=== PATIENT | male | born 1985 | race Caucasian/White ===

== ENCOUNTER 2018-06-30 05:58 | Emergency (ER) | payer OTHER ==
[~2018-06-30] VITALS: Ht 175.3 cm; Wt 117.5 kg
[2018-06-30 06:03] VITALS: BP 139/90; Ht 175.3 cm; Wt 117.5 kg
== END 2018-06-30 06:57 | disposition home or self-care (01) ==
LOC: ED 05:58
DX: L73.9 Follicular disorder, unspecified (principal)

== ENCOUNTER 2018-06-30 19:03 | Emergency (ER) | payer OTHER ==
[~2018-06-30] VITALS: Ht 175.3 cm; Wt 115.2 kg
[2018-06-30 19:21] VITALS: Ht 175.3 cm; Wt 115.2 kg
[2018-06-30 21:36] VITALS: BP 146/103
== END 2018-06-30 21:36 | disposition home or self-care (01) ==
LOC: ED 19:03
DX: L73.9 Follicular disorder, unspecified (principal)
CPT/HCPCS: J7512

== ENCOUNTER 2019-05-04 08:13 | Emergency (ER) | payer OTHER ==
[~2019-05-04] VITALS: Ht 175.3 cm; Wt 112.9 kg
[2019-05-04 08:16] VITALS: Ht 175.3 cm; Wt 112.9 kg
[2019-05-04 10:47] VITALS: BP 150/93
== END 2019-05-04 10:47 | disposition home or self-care (01) ==
LOC: ED 08:13
DX: J20.9 Acute bronchitis, unspecified (principal); R51 Headache; R42 Dizziness and giddiness
CPT/HCPCS: 87804; J7512